=== PATIENT | male | born 1995 | race Caucasian/White ===

== ENCOUNTER 2021-01-09 12:42 | Inpatient (IN) ==
[2021-01-09] MEDS ORDERED: hydrOXYzine pamoate 25 MG CAPSULE PO PRN (14:32)
[2021-01-09] MEDS ORDERED: haloperidoL 5 MG TABLET PO PRN (14:32)
[2021-01-09] MEDS ORDERED: Haloperidol Lactate 5 MG/ML VIAL IM PRN (14:32)
[2021-01-09] MEDS ORDERED: *HR* LORazepam 2 MG/ML VIAL IM PRN (14:32)
[2021-01-09] MEDS ORDERED: Ibuprofen 400 MG TABLET PO PRN (14:32)
[2021-01-09] MEDS ORDERED: *HR* LORazepam 1 MG TABLET PO PRN (14:32)
[2021-01-10] MEDS ORDERED: MOM Conc 10 ML UD.LIQ PO PRN (10:28)
[2021-01-10] MEDS ORDERED: Mag Hydrox/Al Hydrox/Simeth 30 ML UDC PO PRN (10:28)
[2021-01-10] MEDS: Nicotine 21 MG PATCH.TD24 TD SCH (10:29)
[2021-01-10] MEDS: ARIPiprazole 5 MG TABLET PO SCH (10:55)
[2021-01-10] MEDS: QUEtiapine Fumarate 25 MG TABLET PO PRN (22:10)
[2021-01-11] MEDS: Nicotine 21 MG PATCH.TD24 TD SCH (08:44)
[2021-01-11] MEDS: ARIPiprazole 5 MG TABLET PO SCH (08:44)
[2021-01-11] MEDS: QUEtiapine Fumarate 25 MG TABLET PO PRN (21:59)
[2021-01-12] MEDS: Nicotine 21 MG PATCH.TD24 TD SCH (08:59)
[2021-01-12] MEDS: ARIPiprazole 5 MG TABLET PO SCH (08:59)
[2021-01-12] MEDS: QUEtiapine Fumarate 25 MG TABLET PO PRN (20:31)
[2021-01-13] MEDS: Nicotine 21 MG PATCH.TD24 TD SCH (09:22)
[2021-01-13] MEDS: ARIPiprazole 5 MG TABLET PO SCH (09:23)
[2021-01-13 10:00] VITALS: BP 114/73
== END 2021-01-13 11:15 | disposition other institution (70) | DRG 751 ==
LOC: EMEROOARM 12:42 → 1ANU 14:20
PROVIDERS: ADMIT Psychiatry & Neurology Psychiatry; ATTEND Psychiatry & Neurology Psychiatry